=== PATIENT | male | born 1995 | race African-American/Black ===

== ENCOUNTER 2017-05-30 11:12 | Emergency (ER) | payer BC ==
[~2017-05-30] VITALS: Ht 188 cm; Wt 65.8 kg
[~2017-05-30 11:12] MED LIST: ACYC400T PO; ALPR0.254 PO; PRED20TA PO; PRED50TA PO
[2017-05-30] MEDS ORDERED: BENZ100C PO (11:47)
[2017-05-30] MEDS ORDERED: AZIT250T PO (11:47)
--- NOTE | 2017-05-30 11:48 | PHYS DOC ---
Past History Past Medical History: Anxiety, Asthma, Other Past Surgical History: No Surgical History Smoking: Cigarettes Alcohol Use: Occasionally Drug Use: Marijuana Adult General Chief Complaint Chief Complaint: COUGH HPI HPI 20-year-old male patient complaining of chronic dizziness for several months intermittently without change of hearing or ringing in his ear. Patient also complaining of history of asthma and the right costal doesn't get better with home inhalers for several months. Patient complaining of nasal congestion and plugging his nose for the last 1 week without fever and chills, nausea and vomiting, sick contact, earache and sore throat. Review of Systems Review of Systems Constitutional: Denies fever or chills [] Eyes: Denies change in visual acuity, redness, or eye pain [] HENT: Denies earache sore, reports nasal congestion and sinus problems[] Respiratory: Reports cough and shortness of breath [] Cardiovascular: No additional information not addressed in HPI [] GI: Denies abdominal pain, nausea, vomiting, bloody stools or diarrhea [] : Denies dysuria or hematuria [] Musculoskeletal: Denies back pain or joint pain [] Integument: Denies rash or skin lesions [] Neurologic: Denies headache, focal weakness or sensory changes reports dizziness [] Endocrine: Denies polyuria or polydipsia [] All other systems were reviewed and found to be within normal limits, except as documented in this note. Allergies Allergies Allergies Coded Allergies Type Severity Reaction Last Updated Verified No Known Drug Allergies 10/10/14 No Physical Exam Physical Exam Constitutional: Well nourished, no acute distress,anxious, non-toxic appearance. [] HENT: Normocephalic, atraumatic, bilateral external ears normal, oropharynx moist, no oral exudates, nose normal, mild maxillary sinus tenderness. [] Eyes: PERRLA, EOMI, conjunctiva normal, no discharge. [] Neck: Normal range of motion, no tenderness, supple, no stridor. [] Cardiovascular:Heart rate regular rhythm, no murmur [] Lungs & Thorax: Bilateral breath sounds clear to auscultation [] Abdomen: Bowel sounds normal, soft, no tenderness, no masses, no pulsatile masses. [] Skin: Warm, dry, no erythema, no rash. [] Back: No tenderness, no CVA tenderness. [] Extremities: No tenderness, no cyanosis, no clubbing, ROM intact, no edema. [] Neurologic: Alert and oriented X 3, normal motor function, normal sensory function, no focal deficits noted. [] Psychologic: Affect normal, judgement normal, anxious Current Patient Data Vital Signs Vital Signs Date Time Temp Pulse Resp B/P (MAP) Pulse Ox O2 Delivery O2 Flow Rate FiO2 05/30/17 11:20 97.4 99 20 100 Room Air EKG EKG [] Radiology/Procedures Radiology/Procedures [] Course & Med Decision Making Course & Med Decision Making Evaluation of patient in ER showed 21-year-old male patient presented to ER with multiple chronic and acute problem. Patient complaining of sinus problems and informed to follow with his primary care physician regarding chronic dizziness. Patient psychiatric to quit smoking. Plan to give prescription for sinusitis. Dragon Disclaimer Dragon Disclaimer This electronic medical record was generated, in whole or in part, using a voice recognition dictation system. Departure Departure: Impression: Primary Impression: Sinusitis Additional Impressions: History of asthma Chronic vertigo Tobacco abuse counseling History of ADHD Disposition: HOME, SELF-CARE ([id number]) Condition: STABLE Referrals: KHUSHI SOLANO (PCP) Patient Instructions: Asthma, Adult, Sinusitis Additional Instructions: Follow-up with your primary care physician regarding in 3-5 days for chronic vertigo Quit smoking Scripts Benzonatate (TESSALON PERLE) 100 Mg Capsule 1 CAP PO TID, #21 CAP Prov: ROSA PARKER MD 05/30/17 Azithromycin (ZITHROMAX) 250 Mg Tablet 1 PKG PO UD, #6 TAB Prov: ROSA PARKER MD 05/30/17 Problem Qualifiers ROSA PARKER MD May 30, 2017 11:48
[2017-05-30 11:54] VITALS: BP 122/72
== END 2017-05-30 11:57 | disposition home or self-care (01) ==
LOC: ER 11:12
DX: J32.9 Chronic sinusitis, unspecified (principal); J45.909 Unspecified asthma, uncomplicated; R42 Dizziness and giddiness; F90.9 Attention-deficit hyperactivity disorder, unspecified type; F41.9 Anxiety disorder, unspecified; F17.210 Nicotine dependence, cigarettes, uncomplicated; F12.10 Cannabis abuse, uncomplicated
CPT/HCPCS: 99283